=== PATIENT | female | born 1975 | race Caucasian/White ===

== ENCOUNTER 2018-04-19 20:15 | Emergency (ER) | payer BC ==
[~2018-04-19] VITALS: Ht 170.2 cm; Wt 139.3 kg
[2018-04-19] MEDS ORDERED: NAPROXEN500 MG PO (21:21)
[2018-04-19] MEDS ORDERED: ULTRACET1 TABLET PO (21:21)
[2018-04-19 21:41] VITALS: BP 121/94
== END 2018-04-19 21:43 | disposition home or self-care (01) ==
LOC: EME 20:15
DX: M25.562 Pain in left knee (principal); Z85.850 Personal history of malignant neoplasm of thyroid
CPT/HCPCS: 73564; 99281; 99284